=== PATIENT | female | born 1955 | race Caucasian/White ===

== ENCOUNTER 2020-04-19 04:10 | Emergency (ER) | payer OTHER, SELFPAY ==
[~2020-04-19] VITALS: Ht 167.6 cm; Wt 72.6 kg
[2020-04-19 04:16] VITALS: Ht 167.6 cm; Wt 72.6 kg
[2020-04-19 06:27] LABS: BASOPHIL % 0.3 % (0.2-1.3); PLATELET COUNT 153 x10^3mcL (179-408); RED CELL DISTRIBUTION WIDTH 13.4 % (12.3-17.7)
[2020-04-19 06:39] LABS: CALCIUM 8.9 mg/dL (8.5-10.1); CARBON DIOXIDE 25.7 mmol/L (21-32); CHLORIDE SERUM 102 mmol/L (98-107); CREATININE SERUM 0.9 mg/dL (0.6-1.0); GFR1 > 60 mL/min; GLUCOSE SERUM 157 mg/dL (74-106); SODIUM SERUM 139 mmol/L (136-145)
[2020-04-19 06:44] LABS: ALBUMIN 3.7 g/dL (3.4-5.0); ALKALINE PHOSPHATASE 80 U/L (46-116); ALT/SGPT 29 U/L (14-59); AST/SGOT 19 U/L (15-37); BILIRUBIN TOTAL 0.35 mg/dL (0.20-1.00)
[2020-04-19 07:06] LABS: TOTAL PROTEIN, SERUM 8.8 g/dL (6.4-8.2)
[2020-04-19 12:33] VITALS: BP 136/68
== END 2020-04-19 12:30 | disposition home or self-care (01) ==
LOC: ED 04:10
PROVIDERS: Emergency Medicine
DX: U07.1 COVID-19 (principal); I10 Essential (primary) hypertension; E11.9 Type 2 diabetes mellitus without complications
CPT/HCPCS: 83880; 85378; 87804; U0003

== ENCOUNTER 2020-04-26 02:17 | Inpatient (IN) | payer OTHER, SELFPAY ==
[~2020-04-26] VITALS: Ht 160 cm; Wt 79.4 kg
[2020-04-26 05:50] LABS: BASOPHIL % 0.8 % (0.2-1.3); PLATELET COUNT 169 x10^3mcL (179-408); RED CELL DISTRIBUTION WIDTH 13.3 % (12.3-17.7)
[2020-04-26 06:01] LABS: CALCIUM 8.6 mg/dL (8.5-10.1); CARBON DIOXIDE 25.8 mmol/L (21-32); CHLORIDE SERUM 101 mmol/L (98-107); CREATININE SERUM 0.8 mg/dL (0.6-1.0); GFR1 > 60 mL/min; GLUCOSE SERUM 168 mg/dL (74-106); POTASSIUM SERUM 3.7 mmol/L (3.5-5.1); SODIUM SERUM 138 mmol/L (136-145)
[2020-04-26 06:14] LABS: ALKALINE PHOSPHATASE 106 U/L (46-116); ALT/SGPT 52 U/L (14-59); AST/SGOT 29 U/L (15-37); BILIRUBIN TOTAL 0.6 mg/dL (0.20-1.00); LACTIC DEHYDROGENASE (LDH) 483 U/L (100-190); TOTAL PROTEIN, SERUM 8.1 g/dL (6.4-8.2)
[2020-04-26 06:20] LABS: ALBUMIN 2.7 g/dL (3.4-5.0)
[2020-04-26] MEDS ORDERED: METFORMIN HCL1000 MG PO (07:50)
[2020-04-26] MEDS ORDERED: GABAPENTIN100 M2 PO (07:51)
[2020-04-26 12:07] LABS: PHOSPHOROUS 3.3 mg/dL (2.5-4.9)
[2020-04-26 16:32] LABS: microscopic required? NO
[2020-04-26 17:41] LABS: urine erythrocyte NEGATIVE (NEGATIVE)
[2020-04-26 23:34] VITALS: BP 136/78
[2020-04-27 04:52] VITALS: BP 120/82
[2020-04-27 08:19] LABS: PLATELET COUNT 201 x10^3mcL (179-408); RED CELL DISTRIBUTION WIDTH 13.2 % (12.3-17.7)
[2020-04-27 09:01] LABS: BASOPHIL % 0 % (0.2-1.3)
[2020-04-27 09:17] LABS: CALCIUM 8.9 mg/dL (8.5-10.1); CARBON DIOXIDE 25.8 mmol/L (21-32); CHLORIDE SERUM 105 mmol/L (98-107); CREATININE SERUM 0.7 mg/dL (0.6-1.0); GFR1 > 60 mL/min; GLUCOSE SERUM 161 mg/dL (74-106); POTASSIUM SERUM 4.1 mmol/L (3.5-5.1); SODIUM SERUM 141 mmol/L (136-145)
[2020-04-27 09:53] VITALS: BP 119/65
[2020-04-27 13:00] VITALS: BP 129/62
[2020-04-27 16:31] VITALS: BP 129/71
[2020-04-27 20:21] VITALS: BP 126/64
[2020-04-28 05:44] VITALS: BP 117/52
[2020-04-28 07:23] LABS: BASOPHIL % 0.2 % (0.2-1.3); PLATELET COUNT 224 x10^3mcL (179-408); RED CELL DISTRIBUTION WIDTH 13.4 % (12.3-17.7)
[2020-04-28 07:49] LABS: CALCIUM 8.6 mg/dL (8.5-10.1); CARBON DIOXIDE 26.1 mmol/L (21-32); CHLORIDE SERUM 104 mmol/L (98-107); CREATININE SERUM 0.7 mg/dL (0.6-1.0); GFR1 > 60 mL/min; GLUCOSE SERUM 158 mg/dL (74-106); POTASSIUM SERUM 4.1 mmol/L (3.5-5.1); SODIUM SERUM 139 mmol/L (136-145)
[2020-04-28 08:44] VITALS: BP 120/61
[2020-04-28 11:29] VITALS: BP 133/58
[2020-04-28 16:31] VITALS: BP 133/67
[2020-04-28 20:20] VITALS: BP 134/58
[2020-04-29 06:20] VITALS: BP 115/63
[2020-04-29 08:04] VITALS: BP 123/64
[2020-04-29 08:17] LABS: BASOPHIL % 0.3 % (0.2-1.3); PLATELET COUNT 221 x10^3mcL (179-408)
[2020-04-29 08:32] LABS: CALCIUM 8.7 mg/dL (8.5-10.1); CARBON DIOXIDE 26.9 mmol/L (21-32); CHLORIDE SERUM 103 mmol/L (98-107); CREATININE SERUM 0.6 mg/dL (0.6-1.0); GFR1 > 60 mL/min; GLUCOSE SERUM 121 mg/dL (74-106); POTASSIUM SERUM 4.1 mmol/L (3.5-5.1); SODIUM SERUM 138 mmol/L (136-145)
[2020-04-29] MEDS ORDERED: DECADRON6 MG PO (11:05)
[2020-04-29] MEDS ORDERED: VENTOLIN H0.09 MG/A1 INH (11:05)
[2020-04-29 12:00] VITALS: BP 117/62
[2020-04-29 13:23] VITALS: BP 117/62
== END 2020-04-29 16:10 | disposition home or self-care (01) | DRG 137 ==
LOC: ED 02:17 → DU 06:35
PROVIDERS: Emergency Medicine; ADMIT Internal Medicine; ATTEND Internal Medicine
DX: U07.1 COVID-19 (principal); J96.01 Acute respiratory failure with hypoxia; I21.A1 Myocardial infarction type 2; E43 Unspecified severe protein-calorie malnutrition; D68.9 Coagulation defect, unspecified; J12.89 Other viral pneumonia; E11.65 Type 2 diabetes mellitus with hyperglycemia; Z79.84 Long term (current) use of oral hypoglycemic drugs; Z68.30 Body mass index [BMI] 30.0-30.9, adult; I10 Essential (primary) hypertension
CPT/HCPCS: 82962; 83880; 85378; 87804; G0378; J1100; J1650; J1815; J3535

== ENCOUNTER 2020-05-19 16:11 | Emergency (ER) | payer OTHER ==
[~2020-05-19] VITALS: Ht 160 cm; Wt 63.5 kg
[~2020-05-19 16:11] MED LIST: DECADRON6 MG PO; GABAPENTIN100 M2 PO; METFORMIN HCL1000 MG PO; VENTOLIN H0.09 MG/A1 INH
[2020-05-19 16:21] VITALS: Ht 160 cm; Wt 63.5 kg
[2020-05-19 18:08] VITALS: BP 139/61
== END 2020-05-19 19:05 | disposition home or self-care (01) ==
LOC: ED 16:11
DX: I82.403 Acute embolism and thrombosis of unspecified deep veins of lower extremity, bilateral (principal); I10 Essential (primary) hypertension; E11.9 Type 2 diabetes mellitus without complications
CPT/HCPCS: 82962; J1650; J1885